=== PATIENT | male | born 1960 | race Caucasian/White ===

== ENCOUNTER 2018-03-02 18:03 | Emergency (ER) | payer OTHER ==
[~2018-03-02] VITALS: Ht 190.5 cm; Wt 114.1 kg
[2018-03-02 18:06] VITALS: TEMP 36.7; Ht 190.5 cm; Wt 114.1 kg
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
[2018-03-02] MEDS ORDERED: OXYCODONE IR HOME PACK PO ONE (18:30)
[2018-03-02] MEDS ORDERED: OXYC1TAB3 PO (18:37)
--- NOTE | 2018-03-02 18:39 | DIAGNOSTIC IMAGING REPORT ---
R KNEE 1 OR 2 VIEWS ROUTINE CLINICAL HISTORY: Pt c/o Rt knee pain pain COMPARISON: None. DISCUSSION: The bones and joint spaces appear intact. There is no evidence of fracture, dislocation or bony disease. There is no evidence for soft tissue swelling. IMPRESSION: Negative study. The above report was generated using voice recognition software. It may contain grammatical, syntax or spelling errors. Electronically signed by: Paras Barrett M.D. 03/02/2018 6:38 PM Dictated Date/Time: 03/02/2018 6:38 PM
[2018-03-02] MEDS ORDERED: LISI-461 PO (18:51)
[2018-03-02] MEDS ORDERED: ACET-1256 PO (18:52)
[2018-03-02 19:14] VITALS: BP 132/65; PULSE 65; O2SAT 100
== END 2018-03-02 19:05 | disposition home or self-care (01) ==
LOC: C.EDB 18:05 → C.EDD 19:05
DX: M25.561 Pain in right knee (principal); W22.8XXA Striking against or struck by other objects, initial encounter; Y99.0 Civilian activity done for income or pay; F17.200 Nicotine dependence, unspecified, uncomplicated; Z98.890 Other specified postprocedural states; Z79.899 Other long term (current) drug therapy